=== PATIENT | female | born 1980 | race Two or more races ===

== ENCOUNTER 2016-07-16 06:59 | Emergency (ER) | payer OTHER ==
[2016-07-16 06:47] LABS: URINE SOURCE CLEAN CATCH
[2016-07-16 06:49] LABS: URINE APPEARANCE CLEAR; URINE BILIRUBIN NEG (NEG); URINE BLOOD TRACE-INTACT (NEG); URINE COLOR YELLOW; URINE GLUCOSE NEG (NORM); URINE KETONE NEG (NEG); URINE LEUKOCYTE ESTERASE NEG (NEG); URINE NITRATE NEG (NEG); URINE PH 5.5 (5-8); URINE PROTEIN NEG (NEG); URINE SPECIFIC GRAVITY 1.025 (1.003-1.035); URINE UROBILINOGEN 0.2 MG/DL (NORM)
[2016-07-16 06:55] LABS: MICRO INDICATED? YES
[2016-07-16 06:56] LABS: CULTURE INDICATED? NO; URINE BACTERIA NEG (NEG); URINE MUCUS PRESENT; URINE SQUAMOUS EPITHELIAL CELL OCCAS /[HPF]; URINE WBC 0-2 /[HPF] (0-5)
[~2016-07-16 06:59] MED LIST: ALLEGRA
== END 2016-07-16 07:00 | disposition home or self-care (01) ==
LOC: SED 06:59
DX: N39.0 Urinary tract infection, site not specified (principal); F17.200 Nicotine dependence, unspecified, uncomplicated; Z88.2 Allergy status to sulfonamides
CPT/HCPCS: 81003; 84703; 99283

== ENCOUNTER 2016-08-17 21:55 | Emergency (ER) | payer OTHER ==
--- NOTE | ~2016-08-17 | CT4 ---
[facility]. [facility] A Service of [facility] / [facility] RADIOLOGY TEXT RESULTS PATIENT: NEPTALI FOUNTAIN LOCATION: SED : 84 UNIT #: [id number] AGE: [address]: Ky Pineda MD SEX: F ORDER DR: [id number] [address] [address] [id number] MR#: [id number] Acc #: [id number] NAME: NEPTALI FOUNTAIN : 1980 SEX: F STUDY DATE/TIME: 08/17/2016 23:05 UNIT: SED ROOM: STUDY DESCRIPTION: CT Abd and Pelv Wo Cont Attending Physician: Ky Pineda M.D. Ordering Physician: Ky Pineda M.D. Primary Care Physician: Primary Care Physician No MEDICAL IMAGING REPORT This report is preliminary unless electronic signature is present. EXAM CT abdomen and pelvis without contrast DATE 08/17/2016 HISTORY Throbbing sensation in the lower abdomen since June, getting worse. Additional history of smoking, alcohol use, section. COMPARISON None. PROCEDURE 3 mm noncontrast axial images through the abdomen and pelvis. Enteric contrast was not administered. Sagittal and coronal reformatted images were obtained. This CT exam was performed with one or more of the following radiation dose reduction techniques: Automatic exposure control, adjustment of mA and/or kV according to patient size, and iterative reconstruction. FINDINGS ABDOMEN FINDINGS: Lung bases are free of consolidation. Noncontrast appearance of the liver, gallbladder, spleen, pancreas, adrenals and kidneys is within normal limits. No urinary tract stone or hydronephrosis is seen. Abdominal aortic caliber is normal. Appendix is well visualized and appears normal. Limited evaluation of bowel due to lack of enteric contrast but no focal bowel wall thickening or inflammatory changes are identified, and there is no convincing evidence of high-grade bowel obstruction. PELVIS FINDINGS: Small-quantity pelvic free fluid is present extending from the right adnexal region to the cul-de-sac. [facility]us and urinary [facility] A Service of [facility] / [facility] RADIOLOGY TEXT RESULTS PATIENT: NEPTALI FOUNTAIN LOCATION: [facility] [place] : [birth year] UNIT #: [id number] AGE: [address]: Ky Pineda MD SEX: F ORDER DR: bladder and rectum are normal. Small pelvic phleboliths are present on the left. No acute osseous abnormalities are identified. There are tiny scattered sclerotic foci throughout the imaged thoracic and lumbar spine, and pelvis which are nonspecific. Findings could represent changes of osteopoikilosis. If the patient has known history of malignancy, metastatic disease could have a similar appearance. Facet arthropathy is present on the right at L5-S1. IMPRESSION 1. Small-quantity free fluid is demonstrated within the right adnexal region and within the pelvis. It is nonspecific and may be physiologic or could potentially be related to ovarian cyst rupture. 2. The appendix is normal. 3. No urinary tract stone or hydronephrosis. 4. There are scattered small sclerotic foci throughout the imaged skeleton and pelvis, which are nonspecific. In this patient of young age, and no history of malignancy, this may represent multiple bone islands or osteopoikilosis. Alternatively, metastatic disease cannot be excluded in the appropriate clinical context. Please correlate with patient's known history. Dictated by... Sanna Colindres M.D. THIS IS AN ELECTRONICALLY VERIFIED REPORT Sanna Colindres M.D. at 08/18/2016 10:02 PM JOHAN/matias TD: 08/18/2016 01:46 JOB #: [id number] MEDICAL IMAGING REPORT Page 1 of 1
[2016-08-17 22:43] LABS: BASOPHIL# 0.1 X10e3 (0-0.3); BASOPHIL% 0.9 % (0-2.5); EOSINOPHIL# 0.1 X10e3 (0-0.7); HEMATOCRIT 38.4 % (35.0-45.0); LYMPHOCYTE# 3.6 X10e3 (1.0-3.5); MEAN CELL VOLUME 93.4 FL (83-96); MEAN CORPUSCULAR HEMOGLOBIN 31.5 PG (28-34); MEAN CORPUSCULAR HGB CONC 33.8 g/dL (30-36); MEAN PLATELET VOLUME 8.6 FL (6.5-11.5); MONOCYTE# 0.4 X10e3 (0-1.0); MONOCYTE% 5.7 % (3.0-12.0); NEUTROPHIL# 2.6 X10e3 (1.5-7.1); NEUTROPHIL% 38.4 % (40-75); PLATELET COUNT 199 X10e3 (140-420); RED BLOOD COUNT 4.11 X10e (3.90-5.30); RED CELL DISTRIBUTION WIDTH 13.4 % (11.0-15.5); WHITE BLOOD COUNT 6.7 X10e3 (4.0-10.5)
[2016-08-17 22:44] LABS: DIFF IND NO; URINE SOURCE CLEAN CATCH
[2016-08-17 22:47] LABS: URINE APPEARANCE CLEAR; URINE BILIRUBIN NEG (NEG); URINE BLOOD NEG (NEG); URINE COLOR YELLOW; URINE GLUCOSE NEG (NORM); URINE KETONE NEG (NEG); URINE LEUKOCYTE ESTERASE NEG (NEG); URINE NITRATE NEG (NEG); URINE PROTEIN NEG (NEG); URINE SPECIFIC GRAVITY <=1.005 (1.003-1.035); URINE UROBILINOGEN 0.2 MG/DL (NORM)
[2016-08-17 22:48] LABS: MICRO INDICATED? NO
[2016-08-17 22:58] LABS: AMPHETAMINE NEG (NEG); BARBITURATES NEG (NEG); BENZODIAZEPINES NEG (NEG); COCAINE NEG (NEG); MARIJUANA NEG (NEG); OPIATES NEG (NEG); TRICYCLIC ANTIDEPRESSANTS NEG (NEG); U METHADONE NEG (NEG)
[2016-08-17 23:02] LABS: ALBUMIN SERUM 4.2 g/dL (3.5-5.0); BILIRUBIN, DIRECT 0.1 mg/dL (0.0-0.2); BILIRUBIN,INDIRECT 0.2 mg/dL (0.0-0.9); BILIRUBIN,TOTAL 0.3 mg/dL (0.2-2.0); BUN/CREATININE RATIO 21.42; CALCIUM SERUM 9.2 mg/dL (8.4-10.2); CREATININE SERUM 0.7 mg/dL (0.6-1.4); POTASSIUM 3.5 mmol/L (3.5-5.1)
== END 2016-08-18 00:35 | disposition home or self-care (01) ==
LOC: SED 21:55
PROVIDERS: Emergency Medicine
DX: N83.202 Unspecified ovarian cyst, left side (principal); F17.210 Nicotine dependence, cigarettes, uncomplicated; Z98.890 Other specified postprocedural states; Z88.2 Allergy status to sulfonamides
CPT/HCPCS: 36415; 74176; 80048; 80076; 80307; 81003; 82150; 83690; 84703; 85025; 96361; 96374; 96375; 99284; J1885; J2405